=== PATIENT | male | born 1945 | race Caucasian/White ===

== ENCOUNTER 2019-11-07 16:21 | Inpatient (IN) | payer OTHER ==
[~2019-11-07] VITALS: Ht 177.8 cm; Wt 82.1 kg
[2019-11-07] MEDS ORDERED: LEVO-T100 MCG PO (16:33)
[2019-11-07] MEDS ORDERED: INDERAL LA120 M1 PO (16:34)
[2019-11-07] MEDS ORDERED: BLACK ELDERBER1 EACH PO (16:34)
[2019-11-07] MEDS ORDERED: SUPER THERAVIT1 EACH PO (16:34)
[2019-11-07] MEDS ORDERED: ZYRTEC10 M5 PO (16:35)
[2019-11-07] MEDS ORDERED: D3 + K2 DOTS 11 EACH PO (16:35)
[2019-11-07] MEDS ORDERED: MAGNESIUM250 M1 PO (16:35)
[2019-11-07] MEDS ORDERED: ZINC SULFATE220 MG PO (16:35)
[2019-11-07] MEDS ORDERED: IBUPROFEN 400400 M2 PO (16:36)
[2019-11-07] MEDS ORDERED: EXCEDRIN CAPLE1 EACH PO (16:36)
[2019-11-07] MEDS ORDERED: ASA81BEC PO (16:36)
[2019-11-07 17:03] LABS: ABSOLUTE NEUTROPHILS 10.6 thou/uL (1.4-8.2); BASOPHILS 0.5 % (0.0-2.0); EOSINOPHILS 0.3 % (0.0-3.0); HEMATOCRIT 48.5 % (42.0-52.0); HEMOGLOBIN 16.5 gm/dL (14.0-18.0); LYMPHOCYTES 11.7 % (24.0-44.0); MCH 31.8 pg (26.0-34.0); MCHC 34.1 g/dL (28.0-37.0); MCV 93.1 fL (80.0-100.0); MONOCYTES 8.6 % (1.0-8.0); PLATELET COUNT 302 thou/uL (150-400); POLYS 78.9 % (36.0-66.0); RBC 5.21 mil/uL (4.50-6.00); RDW 13.5 % (10.5-14.5); WBC 13.4 thou/uL (4.0-11.0)
[2019-11-07 17:07] LABS: ANION GAP 10 mmol/L (7-16); BUN 24 mg/dL (7-18); CALCIUM 9.4 mg/dL (8.5-10.1); CHLORIDE 102 mmol/L (98-107); CO2 27 mmol/L (21-32); GLUCOSE 114 mg/dL (74-106); POTASSIUM 3.7 mmol/L (3.5-5.1); SODIUM 139 mmol/L (136-145)
[2019-11-07 17:16] LABS: ALBUMIN 4.3 g/dL (3.4-5.0); DIRECT BILIRUBIN 0.2 mg/dL (<0.1-0.2); LIPASE 75 U/L (73-393); SGOT 20 U/L (15-37); SGPT 29 U/L (30-65); TOTAL BILIRUBIN 1.1 mg/dL (<0.1-1.0); TOTAL PROTEIN 7.8 g/dL (6.4-8.2); TROPONIN-I <0.06 ng/mL (<0.06)
--- NOTE | 2019-11-07 19:17 | NUR ---
Kerry King NP, reports that XRAY not needed to confirm placment since auscultation occurred.
--- NOTE | 2019-11-07 19:19 | NUR ---
Attempted to give report to medical floor nurse. Unable to take report at this time.
[2019-11-07 19:52] VITALS: BP 60/82
[2019-11-08 04:00] VITALS: BP 137/83
[2019-11-08 06:11] LABS: HEMOGLOBIN 15.8 gm/dL (14.0-18.0); MCH 31.7 pg (26.0-34.0); MCHC 33.6 g/dL (28.0-37.0); MCV 94.3 fL (80.0-100.0); RBC 4.99 mil/uL (4.50-6.00); RDW 13.8 % (10.5-14.5); WBC 10.5 thou/uL (4.0-11.0)
[2019-11-08 06:19] LABS: PROTIME 10.7 Seconds (9.3-11.4)
[2019-11-08 06:22] LABS: CREATININE 0.9 mg/dL (0.7-1.3); POTASSIUM 3.5 mmol/L (3.5-5.1)
[2019-11-08 07:29] VITALS: BP 141/86
[2019-11-08 07:58] LABS: CALCIUM 9.1 mg/dL (8.5-10.1)
--- NOTE | 2019-11-08 08:09 | EKG ---
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[facility] 1945 Requested By: Kerry Foy Order Number: [id number] MD: Srinath Rodríguez Measurements Intervals [place] Rate: 75 P: 24 MO: 180 QRS: -16 QRSD: 96 T: -25 QT: 384 QTc: 429 Interpretive Statements Sinus rhythm Left ventricular hypertrophy Nonspecific T abnormalities, inferior leads No previous ECG available for comparison Electronically Signed On 11-08-2019 8:07:36 CDT by Srinath Rodríguez [email or web address] <ELECTRONICALLY SIGNED> By: Srinath Rodríguez MD, [facility] 11/08/19806 165 165 Srinath Rodríguez MD, [facility] /EPI
--- NOTE | 2019-11-08 09:36 | NUR ---
PROGRESS PT A/O X4 , HAS NG TO RIGHT NARE TO LIWS 400 CC'S OF DARK LIQUID RETURNED THIS SHIFT PT'S ABDOMEN DISTENDED AND FIRM BUT HAS RECEDED OVERNIGHT AND BECOME SOFTER, PT HAD A LARGE LOOSE BM SOME FORMED PIECES NOTED. PT DENIES PAIN, CONTINUE TO MONITOR NG, IVF'S INFUSING FOR HYDRATION AND ORAL CARE SWABS PROVIDED FOR COMFORT CONTINUE POC.
--- NOTE | 2019-11-08 13:48 | NUR ---
PT ADMITTED RELATED TO SBO. CM REVIEWED CHART AND SPOKE WITH CARE TEAM. CM SPOKE WITH PT OVER THE PHONE THIS DAY. CM ROLE INTRODUCED. PT INDICATED HE LIVES IN A HOUSE WITH HIS WITH 2 STEPS TO ENTER AND STEPS TO BASEMENT. PT INDICATED HE HAD BEEN INDEPENENT WITH GAIT AND ADLS ANIMAL COP. PT INDICATED NO DME ANIMAL COP. PT INDICATED HE IS IN THE PROCESS OF REMODELING A HOUSE. PT STATED HE HAD A PCP WHO FOLLOWS HIS CARE IN [facility]. HE STATED THAT THEY HAVE A HOUSE THERE AND THAT HE HAS A PHYSICAL SCHEDULED WITH HER IN DECEMBER. SHE IS AWARE OF HIS CURRENT HOSPITALIZATION. PT INDICATED HE PLANS TO RETURN HOME ONCE MEDIALLY STABLE. CM TO ASSIST SHOULD ANY DC NEEDS ARISE.
[2019-11-08 16:11] VITALS: BP 137/82
[2019-11-08 16:54] LABS: URINE BLOOD NEGATIVE (Negative); URINE CLARITY CLEAR; URINE COLOR YELLOW; URINE GLUCOSE-RANDOM* NEGATIVE (Negative); URINE KETONES 2+ (Negative); URINE LEUKOCYTES-REFLEX NEGATIVE (Negative); URINE NITRITE-REFLEX NEGATIVE (Negative); URINE PROTEIN (DIPSTICK) NEGATIVE (Negative); URINE SPECIFIC GRAVITY 1.025 (1.005-1.035)
[2019-11-08 16:56] LABS: ICTOTEST (BILI CONFIRMATORY) Negative (Negative); URINE BILIRUBIN NEGATIVE (Negative)
--- NOTE | 2019-11-08 17:18 | NUR ---
ASSUMED CARE AT 0700. PT ALERT AND ORIENTED. NO COMPLAINTS AT THIS TIME. NPO WITH NG TO SUCTION. PT STATES HAD BM THIS AM AND FEELS SOMEWHAT BETTER. ABDOMEN ROUND AND SOFT, BUT DISTENDED. VSSA. PIV INFUSING WITHOUT PROBLEMS. WILL CONTINUE TO MONITOR
[2019-11-08 20:50] VITALS: BP 134/74
--- NOTE | 2019-11-08 23:04 | NUR ---
ASSUMED CARE OF PT @1900 PT ASSESSED AT START OF SHIFT A&OX4. DENIES PAIN, N/V. NG TUBE INTACT AND ON LOW INTERMITENT SUCTION BROWN COLORED OUTPUT NOTED. VITAL SIGNS STABLE. IV INTACT AND FLUIDS INFUISING WILL CONT WITH POC TILL EOS.
[2019-11-09 04:15] VITALS: BP 139/78
[2019-11-09 06:27] LABS: HEMATOCRIT 43.6 % (42.0-52.0); HEMOGLOBIN 14.5 gm/dL (14.0-18.0); MCH 31.5 pg (26.0-34.0); MCHC 33.3 g/dL (28.0-37.0); MCV 94.7 fL (80.0-100.0); RBC 4.6 mil/uL (4.50-6.00); RDW 13.9 % (10.5-14.5); WBC 8.9 thou/uL (4.0-11.0)
[2019-11-09 06:43] LABS: CREATININE 0.8 mg/dL (0.7-1.3); MAGNESIUM 2.2 mg/dL (1.8-2.4); POTASSIUM 3.5 mmol/L (3.5-5.1)
[2019-11-09 08:36] VITALS: BP 148/81
--- NOTE | 2019-11-09 13:44 | NUR ---
SW reviewed chart and spoke with nursing and attending physician. Pt has SBO. NG tube in place. Surgery is following. No weekend discharge anticipated. SW is following to assist as needed with discharge planning.
[2019-11-09 15:16] VITALS: BP 146/81
[2019-11-09 19:50] VITALS: BP 140/76
--- NOTE | 2019-11-09 20:08 | NUR ---
ASSUMED CARE OF PATIENT AT 0715, PATIENT ALERT AND ORIENTED X 4. UP AD EMILY. PATIENT IS NPO AT START OF THE SHIFT. NG TUBE TO LOW SUCTION WITH SMALL AMT. OF DARK BROWN LIQUID. DR GONZALEZ HERE THIS AM, ORDERED SMALL BOWEL X-RAY, RESULT SHOW NO SBO. THIS RN NOTIFIED DR GONZALEZ OF X-RAY RESULTS, RECEIVED ORDER TO REMOVE NG TUBE, AND START CLEAR LIQUIDS. PATIENT TOLERATED CLEAR LIQUIDS, NO C/O NAUSEA OR PAIN THIS SHIFT. ABDOMEN STILL DISTENDED. PATIENT HAS RIGHT AC IV WITH NS AT 75CC/HR. PATIENT HAD 4 LOOSE STOOLS THIS SHIFT. WILL CONTINUE TO MONITOR.
--- NOTE | 2019-11-10 02:24 | NUR ---
Assumed pt care @1915. pt a&ox4. adlib in the room. denies pain. denies n/v. no diarrhea this shift. abdomen is still distended but pt denies any discomfort. bowel sounds are active. pt is good spirit. stated "he feels so much better". v/s stable. no s/s of distress. will cont to monitor
[2019-11-10 04:00] VITALS: BP 125/67
[2019-11-10 08:10] VITALS: BP 134/67
--- NOTE | 2019-11-10 15:20 | NUR ---
Received awake on bed. Due medications given as prescribed, able to swallow meds w/o difficulty. On room air. Vital signs stable. A+Ox4. Still with slight abdominal distention, no complaints of pain, no nausea and no vomiting noted; passing gas. On clear liquids- tolerating well. Continent of B/B- able to use the toilet. Up ad rafita, independent with ADLs. With NS at 75cc/hr, infusing well at R AC. Pt seen by Dr George enriquez to advance diet; may discharge from his standpoint if continues to do well. Pt seen by Dr Mendel enriquez to discontinue IVF- shifted to as ordered, for chest xray 11/10. To continue monitoring patient.
[2019-11-10 15:31] VITALS: BP 121/68
[2019-11-10 19:30] VITALS: BP 119/59
[2019-11-11 03:55] VITALS: BP 141/71
--- NOTE | 2019-11-11 07:26 | NUR ---
RECIEVED CARE OF THIS PATIENT AT 1900. ALERT AND ORIENTED X4. ABD STILL DISTENED AND FIRM BUT NOT PAINFUL BEFORE. C/O H/A. TYLENOL AND TEA GIVEN TOGETHER AND H/A GONE. UP IN ROOM. IV IN RAC. DENIES N/N. SLEPT OFF AND ON DURING NIGHT.
[2019-11-11 07:40] VITALS: BP 132/67
[2019-11-11] MEDS ORDERED: ACETAMINOPHEN325 M1 PO (11:32)
[2019-11-11 11:45] VITALS: BP 132/67
--- NOTE | 2019-11-11 11:47 | NUR ---
Assumed care of pt at 0700. Pt a&ox4. Denies pain. States he feels much better. Passing gas today. KUB performed, shows improvment. Will discharge to home.
== END 2019-11-11 12:00 | disposition home or self-care (01) | DRG 390 ==
LOC: ER 16:21 → EROBS 18:30 → 4S 18:30 → 2N 11-11 08:43 → 4S 11-11 08:55
PROVIDERS: Nurse Practitioner; Nurse Practitioner Family; ADMIT Internal Medicine
DX: K56.609 Unspecified intestinal obstruction, unspecified as to partial versus complete obstruction (principal); D72.828 Other elevated white blood cell count; E03.9 Hypothyroidism, unspecified; G25.0 Essential tremor; R53.81 Other malaise; M54.9 Dorsalgia, unspecified; M54.5 Low back pain; G47.00 Insomnia, unspecified; E78.5 Hyperlipidemia, unspecified; Z79.82 Long term (current) use of aspirin; Z79.899 Other long term (current) drug therapy; Z88.0 Allergy status to penicillin
CPT/HCPCS: 10195

== ENCOUNTER 2020-10-31 22:25 | Inpatient (IN) | payer OTHER ==
[~2020-10-31] VITALS: Ht 177.8 cm; Wt 78.9 kg
[~2020-10-31 22:25] MED LIST: ACETAMINOPHEN325 M1 PO; ASA81BEC PO; BLACK ELDERBER1 EACH PO; D3 + K2 DOTS 11 EACH PO; EXCEDRIN CAPLE1 EACH PO; IBUPROFEN 400400 M2 PO; INDERAL LA120 M1 PO; LEVO-T100 MCG PO; MAGNESIUM250 M1 PO; SUPER THERAVIT1 EACH PO; ZINC SULFATE220 MG PO; ZYRTEC10 M5 PO
[2020-10-31 22:35] VITALS: BP 133/74
[2020-10-31 23:35] LABS: ABSOLUTE NEUTROPHILS 9.5 thou/uL (1.4-8.2); BASOPHILS 0.5 % (0.0-2.0); EOSINOPHILS 0.8 % (0.0-3.0); HEMATOCRIT 47.3 % (42.0-52.0); LYMPHOCYTES 11.5 % (24.0-44.0); MCH 31.6 pg (26.0-34.0); MCHC 33.8 g/dL (28.0-37.0); MCV 93.6 fL (80.0-100.0); MONOCYTES 8.2 % (1.0-8.0); PLATELET COUNT 281 thou/uL (150-400); RBC 5.05 mil/uL (4.50-6.00); RDW 13.5 % (10.5-14.5); WBC 12.1 thou/uL (4.0-11.0)
[2020-10-31 23:49] LABS: ANION GAP 8 mmol/L (7-16); BUN 28 mg/dL (7-18); CALCIUM 9.5 mg/dL (8.5-10.1); CHLORIDE 100 mmol/L (98-107); CO2 28 mmol/L (21-32); CREATININE 0.8 mg/dL (0.7-1.3); GLUCOSE 120 mg/dL (74-106); SODIUM 136 mmol/L (136-145)
[2020-10-31] MEDS ORDERED: COZAAR 25 MG TA25 M1 PO (23:58)
[2020-11-01 00:02] LABS: ALBUMIN 4.3 g/dL (3.4-5.0); AMYLASE 73 U/L (25-115); DIRECT BILIRUBIN 0.2 mg/dL (<0.1-0.2); LIPASE 117 U/L (73-393); SGOT 20 U/L (15-37); SGPT 24 U/L (30-65); TOTAL BILIRUBIN 0.5 mg/dL (0.2-1.0); TOTAL PROTEIN 7.9 g/dL (6.4-8.2); TROPONIN-I <0.06 ng/mL (<0.06)
[2020-11-01 00:54] LABS: URINE BILIRUBIN NEGATIVE (Negative); URINE BLOOD NEGATIVE (Negative); URINE CLARITY CLEAR; URINE COLOR YELLOW; URINE GLUCOSE-RANDOM* NEGATIVE (Negative); URINE KETONES 1+ (Negative); URINE LEUKOCYTES-REFLEX NEGATIVE (Negative); URINE NITRITE-REFLEX NEGATIVE (Negative); URINE PROTEIN (DIPSTICK) NEGATIVE (Negative); URINE UROBILINOGEN 0.2 E.U./dl (0.2-1.0)
[2020-11-01 02:33] VITALS: BP 156/85
[2020-11-01 02:53] VITALS: BP 124/60
--- NOTE | 2020-11-01 04:15 | NUR ---
Pt. arrived to the unit from the emergency room accompanied by staff. He offers no c/o pain or discomfort. Admission assessment and history is com- pleted.
[2020-11-01 04:18] VITALS: BP 128/82
[2020-11-01 06:52] LABS: HEMATOCRIT 42.8 % (42.0-52.0); HEMOGLOBIN 14.2 gm/dL (14.0-18.0); MCH 31.2 pg (26.0-34.0); MCHC 33.1 g/dL (28.0-37.0); MCV 94.2 fL (80.0-100.0); RBC 4.54 mil/uL (4.50-6.00); RDW 13.9 % (10.5-14.5)
[2020-11-01 07:10] LABS: CALCIUM 8.3 mg/dL (8.5-10.1); CREATININE 0.8 mg/dL (0.7-1.3); POTASSIUM 3.9 mmol/L (3.5-5.1)
--- NOTE | 2020-11-01 13:52 | NUR ---
ASSUMED PT CARE AROUND 0700. PT ALERT X ORIENTED X4. ON ROOM AIR. UP AD EMILY. IV RT AC WITH NS/125ML/HR. NG TUBE LF NARES AT 55 WITH LOW INTERMITTENT SUCTION. NPO. NO N/V. NO C/O PAIN. CALL LIGHT IN REACH, BED IN LOW POSITION. PT WILL CALL APPROPRIATELY. WILL CONT TO MONITOR.
[2020-11-01 16:40] VITALS: BP 140/78
[2020-11-01 20:30] VITALS: BP 145/69
[2020-11-02 03:15] VITALS: BP 143/86
[2020-11-02 04:11] LABS: CALCIUM 7.9 mg/dL (8.5-10.1); CREATININE 0.7 mg/dL (0.7-1.3); POTASSIUM 3.5 mmol/L (3.5-5.1)
[2020-11-02 04:37] LABS: HEMATOCRIT 42.2 % (42.0-52.0); HEMOGLOBIN 13.9 gm/dL (14.0-18.0); MCH 31.3 pg (26.0-34.0); MCV 94.9 fL (80.0-100.0); RBC 4.45 mil/uL (4.50-6.00); RDW 13.6 % (10.5-14.5); WBC 9.7 thou/uL (4.0-11.0)
--- NOTE | 2020-11-02 05:00 | NUR ---
RECEIVED CARE OF THIS PATIENT AT 1900. PATIENT ALERT AND ORIENTED X4. UP IN ROOM. C/O STIFF NECK. A-K PAD OBTAINED AND GIVEN TO PATIENT. C/O N/V AROUND 2300, MED GIVEN. PATIENT HAS NG IN L NARES WITH VERY LITTLE OUT OF IT. ABD IS SOFT AND NOT DISTENDED. PATIENT REMAINS NPO. IV PATENT IN RAC WITH FLUIDS INFUSING. SLEPT LITTLE THIS SHIFT.
[2020-11-02 07:42] VITALS: BP 134/76
--- NOTE | 2020-11-02 10:57 | NUR ---
ASSUMED PT CARE THIS AM. PT IS ALERT & ORIENTED X4. PT HAS IV SITE ON R AC RUNNING NS @125ML/HR. PT IS NPO AND HAS NG TUBE ON L NARIS LOW INTERMITTENT SUCTION. PT IS UP AB EMILY AND USES URINAL. PT HAS AQUA K PAD MACHINE @100F PT REQUEST. PT HAD XRAY ABDOMEN TODAY. PT ON THE BED SLEEPING, BED ON THE LOWEST POSITION, SIDE RAILS UP, CALL LIGHT WITHIN REACH. WILL CONTINUE TO MONITOR PT. FOLLOW POC.
[2020-11-02 16:00] VITALS: BP 152/83
[2020-11-02 20:08] VITALS: BP 151/91
--- NOTE | 2020-11-03 04:24 | NUR ---
RECEIVED CARE OF THIS PATIENT AT 1900. PATIENT ALERT AND ORIENTED X4. PATIENT NOT A FALL RISK BUT DOES NOT GET UP D/T THE NG IN HIS L NARE. VERY LITTLE OUT FROM NG. PASSING FLATUS. IV PATENT IN RAC WITH FLUIDS INFUSING. HAS A-K PAD FOR NECK PAIN AND STIFFNESS. SLEPT OFF AND ON DURING SHIFT.
[2020-11-03 04:41] VITALS: BP 133/89
--- NOTE | 2020-11-03 07:18 | EKG ---
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 : 1945 Requested By: Jose Juan Minor Order Number: [id number] MD: Blaise Villegas Measurements Intervals [place] Rate: 56 P: 8 TX: 188 QRS: -16 QRSD: 98 T: -3 QT: 409 QTc: 395 Interpretive Statements Sinus rhythm Abnormal R-wave progression, early transition Left ventricular hypertrophy Compared to ECG 11/07/2019 16:51:18 T-wave abnormality no longer present Electronically Signed On 11-03-2020 7:18:38 CDT by Blaise Villegas [email or web address] <ELECTRONICALLY SIGNED> By: Blaise Villegas MD, [facility] 11/03/20717 14 14 Blaise Villegas MD, [facility] /EPI
[2020-11-03 08:28] VITALS: BP 146/87
--- NOTE | 2020-11-03 08:45 | NUR ---
ASSUMED PT CARE THIS AM. PT VSS, A&OX4. PATIENT AMBULATORY WITH STNDBY ASSIST. NG TUBE TO LEFT NARES WITH LOW INTERMITTENT SUCTION. PATIENT REPORTS PAIN OF 2/10 IN THE LEFT SIDE OF ABDOMEN, BUT IS DENYING ANY MEDICATION FOR PAIN AT THE MOMENT. ABDOMEN DOES NOT APPEAR DISTENDED, HAS ACTIVE BOWEL SOUNDS. ON ROOM AIR. REMAINS NPO.IV PATENT WITH FLUIDS INFUSING. ABLE TO MAKE NEEDS KNOWN. REMAINS CONTINENT, USING A URINAL.
--- NOTE | 2020-11-03 09:26 | NUR ---
INITIAL ASSESSMENT: PT STATED HE LIVES AT HOME. CURRENTLY STAYING MIL HOME FIXING IT UP TO SALE "WE MOVED MY MOTHER IN LAW [place]." PT IS ACTIVE AND INDEPENDENT W/CARES. PT HAS 0 DMES OF HIS OWN, BUT HAS A LOT OF HIS MIL STUFF SHE LEFT IN THE HOME. PT CURRENTLY HAD NG TUBE APPLIED. PT DENIES HX WITH SNF/HH. THERE ARE NO ANITICIPATED CM NEEDS. FOLLOWING.
[2020-11-03 15:58] VITALS: BP 142/84
[2020-11-03 19:51] VITALS: BP 149/85
--- NOTE | 2020-11-04 00:38 | NUR ---
ASSESSED AT START OF SHIFT. PT A&O4 DENIES PAIN N&V. IV INTACT AND FLUIDS INFUSING. PT UP AD EMILY TO THE BATHROOM. PT STATED HAD A SMALL BM TONIGHT THIS NURSE DID NOT OBSERVE. POPPY LITTLE SIPS OF WATER. CALL LIGHT AT REACH AND WILL CONT TO MONITOR.
[2020-11-04 05:18] VITALS: BP 144/78
[2020-11-04 07:30] VITALS: BP 142/81
--- NOTE | 2020-11-04 08:48 | NUR ---
Note Given: Y Facility List Provided:Y Facility Chris: None chosen at this time Candace Hathaway NP discussed BPCI with this pt 11/03/2020
--- NOTE | 2020-11-04 12:11 | NUR ---
Assumed pt care this am. Pt is alert & oriented x4. Pt has IV site on R AC. Pt is on room air. Pt denies pain, nause and vomiting during the shift. Pt reported that has BM this am and passing gas. Pt on the bed laying, bed on the lowest position, call light within reach. Will continue to monitor pt. Follow POC.
--- NOTE | 2020-11-04 13:37 | NUR ---
ORDERS RECEIVIED FOR EVAL AND TREAT. OBSERVED Pt STAND AND AMBULATE AROUND THE ROOM. PER NURSING NOTES, Pt IS UP AD EMILY. SPOKE TO Pt WHO STATES HE IS HAVING NO DIFFICULTY WITH MOBILITY AND IS JUST HUNGRY. Pt DECLINING A FORMAL P.T. EVAL BUT APPEARS SAFE FOR HOME WHEN MEDICALLY CLEAR
--- NOTE | 2020-11-04 14:59 | NUR ---
ON-GOING ASSESSMENT: CM REVIEWED CHART. PTS DIET WAS ADVANCED. PHYSICAL THERAPY WAS ORDERED BUT EVAL WAS DEFERRED PATIENT IS DOING WELL AND NO ISSUES WITH AMBULATION. PT WILL HAVE NO NEEDS FROM CM PRIOR TO DISCHARGE.
[2020-11-04 16:25] VITALS: BP 140/86
[2020-11-04 17:06] VITALS: BP 140/86
--- NOTE | 2020-11-05 07:06 | NUR ---
PATIENT DISCHARGED HOME PRIOR TO OT EVALUATION BEING INITIATED.
== END 2020-11-04 19:06 | disposition home or self-care (01) | DRG 389 ==
LOC: ER 22:25 → EROBS 11-01 01:45 → 4S 11-01 01:45
PROVIDERS: Emergency Medicine; Hospitalist; Nurse Practitioner Family; ADMIT Hospitalist; ATTEND Hospitalist
PROC: 0D9670Z Drainage of Stomach with Drainage Device, Via Natural or Artificial Opening (ICD-10-PCS; principal; 2020-11-01)
DX: K56.609 Unspecified intestinal obstruction, unspecified as to partial versus complete obstruction (principal); R65.10 Systemic inflammatory response syndrome (SIRS) of non-infectious origin without acute organ dysfunction; E03.9 Hypothyroidism, unspecified; I10 Essential (primary) hypertension; G25.0 Essential tremor; A80.9 Acute poliomyelitis, unspecified; Z60.2 Problems related to living alone; N40.0 Benign prostatic hyperplasia without lower urinary tract symptoms; R53.81 Other malaise; M54.2 Cervicalgia; M54.5 Low back pain; Z88.0 Allergy status to penicillin; Z79.899 Other long term (current) drug therapy; Z86.018 Personal history of other benign neoplasm
CPT/HCPCS: 10195